=== PATIENT | female | born 1965 | race Caucasian/White ===

== ENCOUNTER 2017-01-15 10:52 | Day surgery (SDC) | payer OTHER ==
[2017-01-15] MEDS ORDERED: D5 LR 1000 ML 1,000 ML IV ONE (11:06)
[2017-01-15] MEDS ORDERED: DIPRIVAN VIAL 20 ML ONE (12:27)
[2017-01-15 13:17] VITALS: BP 120/74
== END 2017-01-15 13:15 | disposition home or self-care (01) ==
LOC: SURG1 10:52
PROVIDERS: ATTEND Internal Medicine Gastroenterology
PROC: 0DJD8ZZ Inspection of Lower Intestinal Tract, Via Natural or Artificial Opening Endoscopic (ICD-10-PCS; principal; 2017-01-15 14:15)
PROC: 0DBN8ZX Excision of Sigmoid Colon, Via Natural or Artificial Opening Endoscopic, Diagnostic (ICD-10-PCS; principal; 2017-01-15 14:15)
DX: Z12.11 Encounter for screening for malignant neoplasm of colon (principal); K63.5 Polyp of colon; K64.0 First degree hemorrhoids
CPT/HCPCS: A4217; J3490; J7120